=== PATIENT | male | born 1970 | race Caucasian/White ===

== ENCOUNTER 2018-02-06 23:43 | Emergency (ER) | payer OTHER ==
[~2018-02-06] VITALS: Ht 190.5 cm; Wt 119.9 kg
[~2018-02-06 23:43] MED LIST: GLUCOSAMINE CH1 EAC7 PO; MOTRIN600 MG PO
[2018-02-07] MEDS ORDERED: MOTRIN600 MG PO (00:49)
[2018-02-07 01:06] VITALS: BP 139/76
== END 2018-02-07 01:08 | disposition home or self-care (01) ==
LOC: EME 23:43
DX: S93.401A Sprain of unspecified ligament of right ankle, initial encounter (principal); S80.212A Abrasion, left knee, initial encounter; S80.211A Abrasion, right knee, initial encounter; W10.1XXA Fall (on)(from) sidewalk curb, initial encounter; Y92.480 Sidewalk as the place of occurrence of the external cause; Y99.0 Civilian activity done for income or pay
CPT/HCPCS: 73610; 99281; 99284